=== PATIENT | female | born 1965 | race Two or more races ===

== ENCOUNTER 2020-07-15 14:41 | Emergency (ER) | payer SELFPAY ==
[~2020-07-15] VITALS: Ht 167.6 cm; Wt 65.0 kg
[2020-07-15] MEDS ORDERED: SODIUM CHLORIDE 0.9% 1,000 ML IV ONE (15:30)
[2020-07-15] MEDS ORDERED: MECLIZINE 25MG TABLET PO ONE (15:30)
[2020-07-15] MEDS ORDERED: ONDANSETRON HCL 4MG/2ML INJ IV ONE (15:30)
[2020-07-15 15:37] LABS: BASOPHILS % 0.5 % (0.0-2.0); EOSINOPHILS % 0.4 % (0.0-5.0); HEMOGLOBIN. 12.3 g/dL (12.0-16.0); LYMPHOCYTES % 24.8 % (20.0-50.0); MEAN CORPUSCULAR HEMOGLOBIN 27.7 pg (28.0-32.0); MEAN PLATELET VOLUME 8.2 fl (7.4-10.4); MONOCYTES % 5.6 % (2.0-8.0); NEUTROPHILS % 68.7 % (40.0-76.0); PLATELET 315 x1000/uL (130-400); RED BLOOD CELL COUNT 4.46 mill/uL (4.2-5.4); RED CELL DISTRIBUTION WIDTH 15.7 % (11.6-14.6)
[2020-07-15 16:18] LABS: CHLORIDE 106 mEq/L (98-107)
[2020-07-15] MEDS ORDERED: KETOROLAC 30MG/ML VIAL IV ONE (17:45)
[2020-07-15 17:53] VITALS: BP 139/84
== END 2020-07-15 19:30 | disposition home or self-care (01) ==
LOC: EDSEX 14:41 → ER 14:58
DX: R42 Dizziness and giddiness (principal); R10.13 Epigastric pain
CPT/HCPCS: 36415; 70450; 80053; 84484; 85025; 93005; 96361; 96374; 96375; 99285; J1885; J2405; J7030; J8597